=== PATIENT | female | born 1945 | race Caucasian/White ===

== ENCOUNTER → 2018-09-02 | Outpatient (CLI) | payer OTHER ==
[~2018-09-02] MED LIST: ACCUNEB SO1.25 MG/1 INH; ADVAIR 500-501 EACH INH; AMBIEN 5 MG TABL5 M1 PO; ASPIR 8181 MG PO; EFFEXOR 5050 MG/1 T1 PO; IMDUR 60 MG TAB60 M1 PO; INDOMETHACIN 2525 MG PO; KEFLEX250 MG PO; LEVOTHYROXINE0.05 MG PO; LISINOPRIL20 MG PO; METOPROLOL SUCC50 MG PO; OMEPRAZOLE20 M2 PO; PROBIOTIC1 EAC1 PO; SIMVASTATIN40 MG PO; SINGULAIR 10 MG10 M1 PO; SPIRIVA INH; VITAMIN D3400 UNIT PO
[2018-09-02 16:36] LABS: CALCIUM 9.4 mg/dL (8.5-10.1); CREATININE 0.9 mg/dL (0.6-1.3); POTASSIUM 3.6 mmol/L (3.5-5.1)
== END ==
LOC: M.LAB 15:31
PROVIDERS: Nurse Practitioner
DX: I11.0 Hypertensive heart disease with heart failure (principal); I50.32 Chronic diastolic (congestive) heart failure

== ENCOUNTER → 2021-12-04 | Outpatient (CLI) | payer OTHER | LOC: M.RAD 14:14 | PROVIDERS: ATTEND Registered Nurse | DX: R09.89 Other specified symptoms and signs involving the circulatory and respiratory systems (principal) ==